=== PATIENT | male | born 1945 | race Two or more races ===

== ENCOUNTER 2020-09-20 06:26 | Inpatient (IN) | payer OTHER ==
[~2020-09-20] VITALS: Ht 188 cm; Wt 139.7 kg
[~2020-09-20 06:26] MED LIST: APIX5TAB PO; BACL20TA PO; CYAN1TAB14 PO; FENO150C2 PO; FINA5TAB4 PO; GABA300C10 PO; METF-370 PO; ROSU20TA14 PO; TAMS0.4C36 PO; TRAM-297 PO; ZINC50TA7 PO
[2020-09-20] MEDS: BUPIVACAINE W/ EPINEPH 0.25% INJ 50ML MDV ONE ×2 (07:10→10:50)
[2020-09-20] MEDS ORDERED: TRANEXAMIC ACID 20 ML ONE (07:10)
[2020-09-20] MEDS ORDERED: MORPHINE SULF(PF) 0.5MG/ML 10ML VIAL ONE (07:12)
[2020-09-20] MEDS ORDERED: KETOROLAC TROMETH 30 MG/ML 1ML VIAL ONE (07:12)
[2020-09-20] MEDS ORDERED: ceFAZolin 1GM/50ML 100 ML IV ONE (07:16)
[2020-09-20] MEDS ORDERED: BUPIVACAINE W/ EPINEPH 0.5% MPF 30ML VIAL IJ ONE (07:18)
[2020-09-20] MEDS ORDERED: fentaNYL CITRATE 100 MCG/2 ML VL ONE (07:25)
[2020-09-20] MEDS ORDERED: ROCURONIUM 10MG/ML 10ML VIAL IV ONE (07:25)
[2020-09-20] MEDS ORDERED: MIDAZOLAM HCL 2MG/2ML 2ml VIAL (1mg/ml) ONE ×2 (07:25→11:05)
[2020-09-20] MEDS ORDERED: ONDANSETRON HCL 4 MG/2 ML VIAL ONE (07:42)
[2020-09-20] MEDS ORDERED: LIDOCAINE 2% (LOCAL ANESTH.) PF 5ml SDV ONE (07:42)
[2020-09-20] MEDS ORDERED: PROPOFOL 10 MG/ML 20 ML IV ONE (07:43)
[2020-09-20] MEDS: VANCOMYCIN HCL 1000 MG VL ONE ×2 (07:47→10:50)
[2020-09-20] MEDS ORDERED: HYDROmorphone HCL 2 MG/ML VL ONE ×2 (09:29→12:55)
[2020-09-20] MEDS ORDERED: GLYCOPYRROLATE 0.2 MG/ML 1ML VIAL ONE (11:05)
[2020-09-20] MEDS ORDERED: NEOSTIGMINE 1 MG/ML INJ (10mg/10ML VIAL) ONE (11:05)
[2020-09-20] MEDS: LACTATED RINGER'S 1,000 ML IV SCH ×2 (11:15→21:15)
[2020-09-20] MEDS ORDERED: NITROGLYCERIN 0.4 MG SL TAB SL PRN (11:15)
[2020-09-20] MEDS ORDERED: HYDROmorphone HCL 2 MG/ML VL IV PRN (11:15)
[2020-09-20] MEDS ORDERED: MORPHINE SULF INJ 2 MG/ML SYRINGE 1ML IV PRN (11:15)
[2020-09-20] MEDS ORDERED: ACETAMINOPHEN 325 MG TAB PO PRN (11:15)
[2020-09-20] MEDS ORDERED: ONDANSETRON HCL 4 MG/2 ML VIAL IV PRN ×2 (11:15)
[2020-09-20] MEDS: InsuLIN REG 1unit/0.01ml Soln (100units/ml) SC SCH ×3 (11:30→21:52)
[2020-09-20] MEDS ORDERED: DEXTROSE (50%) 50ML SYRG IV PRN (11:30)
[2020-09-20] MEDS: ACCU-CHEK COMFORT CURVE STRIP VI SCH ×3 (11:30→21:52)
[2020-09-20] MEDS ORDERED: SUCCINYLCHOLINE CHLORIDE 20 MG/ML 10ML VIAL IV ONE (12:24)
[2020-09-20] MEDS: HYDROmorphone HCL 2 MG/ML VL IV PRN ×2 (12:57→13:25)
[2020-09-20] MEDS: ceFAZolin 1GM/50ML 50 ML IV SCH ×2 (13:09→19:20)
[2020-09-20] MEDS: KETOROLAC TROMETH 30 MG/ML 1ML VIAL IV SCH ×2 (14:00→21:51)
[2020-09-20] MEDS ORDERED: PATIENTS OWN MEDICATION (Baclofen 10 MG) PO SCH (14:00)
[2020-09-20] MEDS: BACLOFEN 10 MG TAB PO SCH ×2 (14:00→21:51)
[2020-09-20 14:50] VITALS: BP 114/65
[2020-09-20 16:21] LABS: Albumin 3.3 g/dL (3.4-5.0); BUN/Creatinine Ratio 11.7; Calcium 7.9 mg/dL (8.5-10.1); Potassium 4.5 mmol/L (3.5-5.1)
[2020-09-20 16:23] LABS: Bilirubin, Total 0.5 mg/dL (0.2-1.0); Total Protein 6.4 g/dL (6.4-8.2)
[2020-09-20 17:00] VITALS: BP 114/65
[2020-09-20] MEDS: HYDROcodone-ACET 10/325MG TAB PO PRN (20:52)
[2020-09-20] MEDS: metFORMIN HYDROCHLORIDE 500 MG TAB PO SCH (21:51)
[2020-09-20] MEDS: DOCUSATE SOD 100 MG CAP PO SCH (21:51)
[2020-09-20 22:00] VITALS: BP 137/99
[2020-09-20] MEDS ORDERED: APIXABAN 5 MG TAB PO SCH (22:00)
[2020-09-21] MEDS: ceFAZolin 1GM/50ML 50 ML IV SCH (00:51)
[2020-09-21] MEDS: HYDROcodone-ACET 10/325MG TAB PO PRN ×2 (04:22→09:46)
[2020-09-21 05:00] VITALS: BP 140/75
[2020-09-21] MEDS: BACLOFEN 10 MG TAB PO SCH (05:46)
[2020-09-21 06:01] LABS: Basophils # (auto) 0 10 ^3/uL (0-0.2); Basophils % (auto) 0.3 % (0.0-2.0); Eosinophils # (auto) 0 10 ^3/uL (0-0.8); Eosinophils % (auto) 0.1 % (0.0-7.0); Hematocrit 32.3 % (41.0-53.0); Hemoglobin 11.2 g/dL (13.5-17.5); Lymphocytes # (auto) 1.2 10 ^3/uL (0.4-5.4); Lymphocytes % (auto) 14.5 % (10.0-50.0); Mean Corpuscular Hemoglobin 31.9 pg (28.0-32.0); Mean Corpuscular Hgb Conc. 34.7 g/dL (32.0-36.0); Mean Corpuscular Volume 91.8 fL (80.0-100.0); Monocytes # (auto) 0.9 10 ^3/uL (0-1.3); Monocytes % (auto) 10.9 % (0.0-12.0); Neutrophils # (auto) 6.2 10 ^3/uL (1.6-8.6); Neutrophils % (auto) 74.2 % (37.0-80.0); Nucleated Red Blood Cells % 0.1 %; Red Blood Cells 3.52 10^6/uL (4.5-5.90); Red Cell Distribution Width 14.4 % (11.8-14.3); White Blood Cell 8.3 10^3/uL (4.4-10.8)
[2020-09-21 06:31] LABS: Calcium 7.6 mg/dL (8.5-10.1); Potassium 3.9 mmol/L (3.5-5.1)
[2020-09-21] MEDS: ACCU-CHEK COMFORT CURVE STRIP VI SCH ×2 (06:32→11:30)
[2020-09-21 06:33] LABS: BUN/Creatinine Ratio 11.8
[2020-09-21] MEDS: InsuLIN REG 1unit/0.01ml Soln (100units/ml) SC SCH ×2 (06:33→11:30)
[2020-09-21] MEDS ORDERED: APIXABAN 5 MG TAB PO SCH (07:00)
[2020-09-21] MEDS: LACTATED RINGER'S 1,000 ML IV SCH (08:00)
[2020-09-21 09:00] VITALS: BP 126/67
[2020-09-21] MEDS: DOCUSATE SOD 100 MG CAP PO SCH (09:27)
[2020-09-21] MEDS: metFORMIN HYDROCHLORIDE 500 MG TAB PO SCH (09:29)
[2020-09-21] MEDS ORDERED: TAMSULOSIN HYDROCHLORIDE 0.4 MG CAP PO SCH (10:00)
[2020-09-21 11:20] VITALS: BP 126/67
== END 2020-09-21 12:00 | disposition home or self-care (01) | DRG 483 ==
LOC: SUR 06:26 → TELE 11:05 → TELE-WESTW 14:40
PROVIDERS: ADMIT Orthopaedic Surgery Sports Medicine; ATTEND Orthopaedic Surgery Sports Medicine
PROC: 0RRK00Z Replacement of Left Shoulder Joint with Reverse Ball and Socket Synthetic Substitute, Open Approach (ICD-10-PCS; principal; 2020-09-20 07:54)
DX: M19.012 Primary osteoarthritis, left shoulder (principal); Z88.8 Allergy status to other drugs, medicaments and biological substances; E11.9 Type 2 diabetes mellitus without complications; Z86.718 Personal history of other venous thrombosis and embolism
CPT/HCPCS: 36415; 73020; 80048; 80053; 82962; 85025; 86850; 86900; 86901; 97163; G0378; J0330; J0690; J1815; J1885; J2001; J2250; J2405; J2704